=== PATIENT | male | born 2005 | race Caucasian/White ===

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

== ENCOUNTER → 2025-07-29 | Outpatient (CLI) | payer BC | END | disposition home or self-care (01) | LOC: CARD 07-27 15:00 | PROVIDERS: ATTEND Family Medicine | DX: R94.31 Abnormal electrocardiogram [ECG] [EKG] (principal) ==